=== PATIENT | female | born 1980 | race Caucasian/White ===

== ENCOUNTER 2020-10-06 17:02 | Emergency (ER) | payer MEDICAID ==
[~2020-10-06] VITALS: Ht 154.9 cm; Wt 91.2 kg
[2020-10-06] MEDS ORDERED: ALBU90AE INH (17:35)
[2020-10-06] MEDS ORDERED: IBUP-1623 PO (17:36)
--- NOTE | 2020-10-06 17:57 | NUR ---
BIB EMS FOR SI. PT WAS PUT ON A LEGAL HOLD BY D FOR STATEMENTS MADE TO HER DAUGHTER THAT SHE WANTED TO KILL HERSELF. SHE ALSO CUT HER FOREARMS WITH A KNIFE, SUSTAINING SUPERFICIAL LACERATIONS. PT STATES SHE HAS BEEN GETTING OFF OF METH AND WANTS TO CHANGE HER LIFE. LAST USE OF METH WAS 4 DAYS AGO. SHE DENIES A SUICIDAL PLAN. SHAY STATES THAT SHE DOES NOT WANT TO KILL HERSELF, BUT THAT SHE JUST WANTS TO GET OFF OF METH.
--- NOTE | 2020-10-06 17:58 | NUR ---
ROOM SECURED AND GARAGE DOOR DOWN FOR SAFETY. ALL BELONGINGS COLLECTED AND PUT INTO ONE BAG AND SECURED IN THE LOCKED CABINET. PATIENT BREATHYLIZED AND BLEW A 0.000. DINNER TRAY ORDERED FOR PATIENT. PT ATTEMPTED TO VOID BUT WAS UNABLE.
[2020-10-06] MEDS ORDERED: DIPH,PERTUSS(ACELL),TET VAC/PF 0.5 ML IM-VACC ONE ×3 (18:00→18:24)
[2020-10-06 18:06] LABS: BASOPHILS % (AUTO) 1 % (0-1); EOSINOPHILS % (AUTO) 1 % (1-7); LYMPHOCYTES % (AUTO) 18 % (22-44); MEAN CORPUSCULAR HGB CONC 32.8 g/dL (32.4-35.8); MEAN PLATELET VOLUME 7.8 fL (7.4-10.4); MONOCYTES % (AUTO) 7 % (2-9); NEUTROPHILS % (AUTO) 73 % (42-75); PLATELET COUNT 346 x10^3/uL (130-400); RED BLOOD COUNT 5.23 x10^6/uL (3.82-5.3); RED CELL DISTRIBUTION WIDTH 13.4 % (9.6-15.2)
[2020-10-06 18:09] LABS: MD NO
[2020-10-06 18:12] LABS: ALBUMIN 4.1 g/dL (3.4-5.0); ANION GAP 5 mmol/L (5-15); CALCIUM 9.1 mg/dL (8.5-10.1); CHLORIDE 108 mmol/L (98-107); CREATININE 0.87 mg/dL (0.55-1.02)
[2020-10-06 18:22] LABS: SALICYLATE LEVEL < 1.7 mg/dL (2.8-20.0)
--- NOTE | 2020-10-06 18:38 | NUR ---
TETANUS SHOT AND INFORMATION SHEET GIVEN TO PATIENT. LEFT FOREARM SUPERFICIAL LACERATIONS CLEANSED WITH NS AND STERI STRIPS APPLIED TO ONE, 4CM SUPERFICIAL LACERATION THAT GOES THROUGH THE DERMIS, AND WRAPPED WITH ROLLER GUAZE.
--- NOTE | 2020-10-06 18:39 | NUR ---
DINNER TRAY SERVED TO PATIENT. URINE SENT TO LAB.
[2020-10-06 18:50] LABS: AMPHETAMINE SCREEN, URINE Positive (Negative); BARBITURATE SCREEN, URINE Negative (Negative); BENZODIAZEPINE SCREEN, URINE Negative (Negative); CANNABINOID SCREEN, URINE Positive (Negative); COCAINE SCREEN, URINE Negative (Negative); METHADONE SCREEN, URINE Negative (Negative); OPIATE SCREEN, URINE Negative (Negative)
--- NOTE | 2020-10-06 18:52 | NUR ---
bedside report recieved from [facility]. pt resting in bed eating dinner tray, states no other needs at this time
[2020-10-06 20:32] VITALS: BP 133/84
[2020-10-06] MEDS ORDERED: MELATONIN 5 MG TABLET ONE (20:57)
--- NOTE | 2020-10-06 20:59 | NUR ---
PT MEDICATED PER EMAR AND GIVEN MORE WATER PER REQUEST.
[2020-10-06] MEDS ORDERED: MELATONIN 5 MG TABLET PO PRN (21:00)
--- NOTE | 2020-10-06 21:26 | NUR ---
PT SLEEPING, RESPIRATIONS EVEN/UNLABORED, SITTER IN LINE OF SIGHT
--- NOTE | 2020-10-06 22:12 | NUR ---
THROUGHPUT RN: PER U PT NEEDS RAPID COVID PRIOR TO ADMISSION TO UNIT, ALEX UPDATED ORDERS AT THIS TIME. LASHAY FROM [facility] STS SHE HAS TO TALK TO THE DR ABOUT PT
--- NOTE | 2020-10-06 22:30 | NUR ---
RAPID COVID TEST TAKEN ON PT, AND WALKED DOWN TO LAB
--- NOTE | 2020-10-06 22:36 | NUR ---
PER ESTELLA METZ, WILL TAKE AFTER NEGATIVE COVID RESULTS
--- NOTE | 2020-10-06 23:13 | NUR ---
REPORT GIVEN TO VITALY MARTELL AT [facility].
== END 2020-10-06 23:44 ==
LOC: ED 20:41
DX: S51.812A Laceration without foreign body of left forearm, initial encounter (principal); R45.851 Suicidal ideations; F15.20 Other stimulant dependence, uncomplicated; Z11.59 Encounter for screening for other viral diseases; J45.909 Unspecified asthma, uncomplicated; W26.0XXA Contact with knife, initial encounter; Y93.89 Activity, other specified; Y92.89 Other specified places as the place of occurrence of the external cause; Y99.8 Other external cause status
CPT/HCPCS: 36415; 80048; 80307; 82040; 84443; 84703; 85025; 87635; 90471; 90715; 99285

== ENCOUNTER 2020-10-06 23:23 | Inpatient (IN) | payer MEDICAID ==
[~2020-10-06] VITALS: Ht 154.9 cm; Wt 85.0 kg
[~2020-10-06 23:23] MED LIST: ALBU90AE INH; IBUP-1623 PO
[2020-10-06] MEDS ORDERED: DOCUSATE 100 MG CAPSULE PO PRN (23:30)
[2020-10-06] MEDS ORDERED: POLYETHYLENE GLYCOL 17 GM PACKET PO PRN (23:30)
[2020-10-06] MEDS ORDERED: ONDANSETRON ODT 4 MG PO PRN (23:30)
[2020-10-06] MEDS ORDERED: BISACODYL 10 MG SUPP PR PRN (23:30)
[2020-10-07 00:24] VITALS: BP 113/79
[2020-10-07 06:50] LABS: CHOL/HDL RATIO 4.5; LDL/HDL RATIO 3.1 (0.5-3.0)
[2020-10-07 07:30] VITALS: BP 110/75
[2020-10-07 08:51] LABS: BASOPHILS % (AUTO) 1 % (0-1); EOSINOPHILS % (AUTO) 2 % (1-7); LYMPHOCYTES % (AUTO) 17 % (22-44); MEAN CORPUSCULAR HEMOGLOBIN 28.2 pg (27.0-34.8); MEAN CORPUSCULAR HGB CONC 32.8 g/dL (32.4-35.8); MEAN PLATELET VOLUME 8.3 fL (7.4-10.4); MONOCYTES % (AUTO) 6 % (2-9); NEUTROPHILS % (AUTO) 75 % (42-75); PLATELET COUNT 298 x10^3/uL (130-400); RED BLOOD COUNT 4.79 x10^6/uL (3.82-5.3); RED CELL DISTRIBUTION WIDTH 13.8 % (9.6-15.2)
[2020-10-07 08:52] LABS: MD NO
[2020-10-07] MEDS ORDERED: ALBUTEROL HFA 90 MCG/SPRAY INH PRN (09:00)
[2020-10-07 09:04] LABS: ALANINE AMINOTRANSFERASE 50 U/L (12-78); ALBUMIN 3.5 g/dL (3.4-5.0); ANION GAP 9 mmol/L (5-15); CALCIUM 8.7 mg/dL (8.5-10.1); CHLORIDE 112 mmol/L (98-107); CREATININE 0.68 mg/dL (0.55-1.02)
[2020-10-07 09:06] LABS: ALKALINE PHOSPHATASE 81 U/L (45-117); BILIRUBIN,TOTAL 0.5 mg/dL (0.2-1.0); TOTAL PROTEIN 7.1 g/dL (6.4-8.2)
[2020-10-07 13:23] LABS: MICROSCOPIC NOT IND
[2020-10-07] MEDS: BUPROPION SR 150 MG TABLET PO SCH ×2 (13:30→19:48)
[2020-10-07] MEDS: METHOCARBAMOL 500 MG TABLET PO PRN ×2 (14:32→19:47)
[2020-10-07] MEDS: ACETAMINOPHEN 325 MG TABLET PO PRN (18:10)
[2020-10-07 19:16] VITALS: BP 118/79
[2020-10-07] MEDS: DIPHENHYDRAMINE 50 MG CAPSULE PO PRN (19:47)
[2020-10-08 07:49] VITALS: BP 114/75
[2020-10-08] MEDS: BUPROPION SR 150 MG TABLET PO SCH ×2 (08:26→15:34)
[2020-10-08] MEDS: METHOCARBAMOL 500 MG TABLET PO PRN ×2 (08:44→20:25)
[2020-10-08] MEDS: ACETAMINOPHEN 325 MG TABLET PO PRN (08:44)
[2020-10-08 20:07] VITALS: BP 126/79
[2020-10-08] MEDS: DIPHENHYDRAMINE 50 MG CAPSULE PO PRN (20:25)
[2020-10-09 07:27] VITALS: BP 103/68
[2020-10-09] MEDS: BUPROPION SR 150 MG TABLET PO SCH ×2 (08:28→13:22)
[2020-10-09] MEDS: METHOCARBAMOL 500 MG TABLET PO PRN ×2 (08:33→20:24)
[2020-10-09] MEDS: ACETAMINOPHEN 325 MG TABLET PO PRN ×2 (08:34→13:22)
[2020-10-09] MEDS ORDERED: DIPH50CA PO (15:09)
[2020-10-09] MEDS ORDERED: BUPR150T73 PO (15:09)
[2020-10-09] MEDS ORDERED: ALBU18HF INH (15:09)
[2020-10-09 19:12] VITALS: BP 100/62
[2020-10-09] MEDS: DIPHENHYDRAMINE 50 MG CAPSULE PO PRN (20:24)
[2020-10-10 07:20] VITALS: BP 113/75
[2020-10-10] MEDS: BUPROPION SR 150 MG TABLET PO SCH (08:19)
[2020-10-10] MEDS: METHOCARBAMOL 500 MG TABLET PO PRN (08:20)
== END 2020-10-10 11:14 | disposition home or self-care (01) | DRG 885 ==
LOC: 3E 23:40
PROVIDERS: ADMIT Psychiatry & Neurology Psychosomatic Medicine; ATTEND Psychiatry & Neurology Psychosomatic Medicine
DX: F31.30 Bipolar disorder, current episode depressed, mild or moderate severity, unspecified (principal); F15.20 Other stimulant dependence, uncomplicated; J45.909 Unspecified asthma, uncomplicated; F12.10 Cannabis abuse, uncomplicated; E66.9 Obesity, unspecified; Z68.35 Body mass index [BMI] 35.0-35.9, adult; X78.1XXA Intentional self-harm by knife, initial encounter; Y93.89 Activity, other specified; Y92.89 Other specified places as the place of occurrence of the external cause; Y99.8 Other external cause status
CPT/HCPCS: 36415; 71045; 80053; 80061; 81003; 84439; 85025; 93005